=== PATIENT | male | born 1970 | race Two or more races ===

== ENCOUNTER 2020-06-09 09:16 | Outpatient (CLI) | payer OTHER | END 2020-06-09 09:22 | disposition HB | LOC: SONOGRAMA 09:16 | DX: R16.1 Splenomegaly, not elsewhere classified (principal); D69.49 Other primary thrombocytopenia; D70.4 Cyclic neutropenia ==

== ENCOUNTER 2020-08-13 10:12 | Outpatient (CLI) | payer OTHER | END 2020-08-13 10:28 | disposition home or self-care (01) | LOC: LAB 10:12 | DX: D69.49 Other primary thrombocytopenia (principal); D70.4 Cyclic neutropenia ==

== ENCOUNTER → 2021-02-13 08:58 | Outpatient (CLI) | payer OTHER | END | disposition home or self-care (01) | LOC: LAB 08:58 | PROVIDERS: ATTEND Physical Medicine & Rehabilitation | DX: R73.09 Other abnormal glucose (principal); E78.01 Familial hypercholesterolemia; E72.11 Homocystinuria; R53.1 Weakness; E55.9 Vitamin D deficiency, unspecified; R53.83 Other fatigue; E03.4 Atrophy of thyroid (acquired); Z12.5 Encounter for screening for malignant neoplasm of prostate; R70.0 Elevated erythrocyte sedimentation rate ==

== ENCOUNTER 2021-04-17 11:12 | Outpatient (CLI) | payer OTHER | END 2021-04-17 11:20 | disposition home or self-care (01) | LOC: LAB 11:12 | DX: D68.8 Other specified coagulation defects (principal); T45.515A Adverse effect of anticoagulants, initial encounter; Z01.812 Encounter for preprocedural laboratory examination; I10 Essential (primary) hypertension; H00.14 Chalazion left upper eyelid ==

== ENCOUNTER 2022-02-16 07:56 | Outpatient (CLI) | payer OTHER | END 2022-02-16 08:07 | disposition home or self-care (01) | LOC: LAB 07:56 | PROVIDERS: ATTEND Physical Medicine & Rehabilitation | DX: E78.01 Familial hypercholesterolemia (principal); R73.09 Other abnormal glucose; E72.11 Homocystinuria; R53.83 Other fatigue; R53.1 Weakness; E29.1 Testicular hypofunction; E03.4 Atrophy of thyroid (acquired); Z12.5 Encounter for screening for malignant neoplasm of prostate ==

== ENCOUNTER 2022-08-20 10:39 | Outpatient (CLI) | payer OTHER | END 2022-08-20 10:54 | disposition home or self-care (01) | LOC: LAB 10:39 | PROVIDERS: ATTEND Physical Medicine & Rehabilitation | DX: R53.83 Other fatigue (principal); R53.1 Weakness; E55.9 Vitamin D deficiency, unspecified; E29.1 Testicular hypofunction; E03.4 Atrophy of thyroid (acquired); Z12.5 Encounter for screening for malignant neoplasm of prostate; R70.0 Elevated erythrocyte sedimentation rate ==

== ENCOUNTER 2023-02-18 10:33 | Outpatient (CLI) | payer OTHER ==
[2023-02-18 11:21] LABS: URINE APPEARANCE Clear; URINE BILIRRUBIN Negative (NEGATIVE); URINE BLOOD Negative; URINE COLOR Yellow; URINE GLUCOSE Negative (NEGATIVE); URINE LEUKOCYTE Negative; URINE NITRATE Negative; URINE PROTEIN Negative (NEGATIVE); URINE UROBILINOGEN 0.2 E.U./dl
[2023-02-18 11:28] LABS: URINE BACTERIA 1.2 uL (0.0-1933); URINE EPITHELIAL CELLS 0.1 uL (0.0-38.8); URINE WBC 0.6 uL (0.0-23.2)
[2023-02-18 11:33] LABS: HEMATOCRIT 41.3 % (39.0-48.0); HEMOGLOBIN 14.5 g/dL (13-16.00); MEAN CELL VOLUME 90.4 fL (80.0-100.00); MEAN CORPUSCULAR HEMOGLOBIN 31.8 pg (27.00-32.0); MEAN CORPUSCULAR HGB CONC 35.2 g/dl (32.0-36.0); PLATELET COUNT 112 K/uL (150-450); RED BLOOD COUNT 4.57 M/uL (4.00-6.00); RED CELL DISTRIBUTION WIDTH 13.6 % (11.5-14.5)
[2023-02-18 11:50] LABS: ALBUMIN 3.7 gm/dL (3.4-5.0); ALKALINE PHOSPHATASE 61 U/L (50-136); ALT/SGPT 33 U/L (12-78); ANION GAP 4 (10.0-20.0); AST/SGOT 15 U/L (15-37); BILIRUBIN TOTAL 0.64 mg/dL (0.3-1.2); BLOOD UREA NITROGEN 27 mg/dL (7-18); BUN CREA RATIO 23 (7.0-25.0); CALCIUM 8.7 mg/dL (8.5-10.1); CARBON DIOXIDE 33 mEq/L (21-32); CHLORIDE 105 mmol/L (98-107); CHOLESTEROL 187 mg/dL (0-200); CREATININE SERUM 1.16 mg/dL (0.70-1.30); FREE TRIODOTIRONINE 2.61 pg/ml (2.18-3.98); GFR 65.86; GLOBULINA 2.8 G/DL (2.4-3.5); GLUCOSE FASTING 94 mg/dL (65-100); HDL 63 mg/dl (40-60); LDL 116 mg/dl (0-130); OSMOLALITY SERUM 281 MOSM/KG (275-295); POTASSIUM 4.22 mEq/L (3.5-5.1); SODIUM 138 mmol/L (136-145); T4 FREE 0.91 NG/ML (0.76-1.46); TOTAL PROTEIN 6.5 gm/dL (6.4-8.2); TRIGLYCERIDES 38 mg/dL (0-150); VLDL 7 (0-39)
[2023-02-18 11:58] LABS: C-REACTIVE PROTEIN < 0.29 MG/DL (0.00-0.29)
== END 2023-02-18 10:35 | disposition home or self-care (01) ==
LOC: LAB 10:33
PROVIDERS: ATTEND Physical Medicine & Rehabilitation
DX: N40.1 Benign prostatic hyperplasia with lower urinary tract symptoms (principal); R73.09 Other abnormal glucose; R53.83 Other fatigue; R53.1 Weakness; E55.9 Vitamin D deficiency, unspecified; E29.1 Testicular hypofunction; E03.4 Atrophy of thyroid (acquired); Z12.5 Encounter for screening for malignant neoplasm of prostate; R70.0 Elevated erythrocyte sedimentation rate

== ENCOUNTER 2023-02-22 08:23 | Outpatient (CLI) | payer OTHER | END 2023-02-22 08:36 | disposition home or self-care (01) | LOC: SONOGRAMA 08:23 | PROVIDERS: ATTEND Physical Medicine & Rehabilitation | DX: E03.4 Atrophy of thyroid (acquired) (principal) ==

== ENCOUNTER 2023-08-19 09:35 | Outpatient (CLI) | payer OTHER ==
[2023-08-19 12:36] LABS: HEMATOCRIT 43.7 % (39.0-48.0); MEAN CELL VOLUME 90.7 fL (80.0-100.00); MEAN CORPUSCULAR HEMOGLOBIN 31.2 pg (27.00-32.0); MEAN CORPUSCULAR HGB CONC 34.4 g/dl (32.0-36.0); RED BLOOD COUNT 4.81 M/uL (4.00-6.00)
[2023-08-19 12:39] LABS: ERYTHROCYTE SEDIMENTATION RATE < 1 mm/hr; PLATELET COUNT 114 K/uL (150-450)
[2023-08-19 13:30] LABS: ALKALINE PHOSPHATASE 58 U/L (50-136); ALT/SGPT 33 U/L (12-78); ANION GAP 7 (10.0-20.0); AST/SGOT 18 U/L (15-37); BILIRUBIN TOTAL 0.54 mg/dL (0.3-1.2); BLOOD UREA NITROGEN 25 mg/dL (7-18); BUN CREA RATIO 20 (7.0-25.0); CALCIUM 9.3 mg/dL (8.5-10.1); CARBON DIOXIDE 32 mEq/L (21-32); CHLORIDE 108 mmol/L (98-107); CHOL HDL RATIO 3.6 (0-5.0); CHOLESTEROL 196 mg/dL (0-200); CREATININE SERUM 1.24 mg/dL (0.70-1.30); FREE TRIODOTIRONINE 3.18 pg/ml (2.18-3.98); GFR 60.75; GLUCOSE FASTING 86 mg/dL (65-100); HDL 54 mg/dl (40-60); LDL 131 mg/dl (0-130); OSMOLALITY SERUM 287 MOSM/KG (275-295); POTASSIUM 4.86 mEq/L (3.5-5.1); PROSTATIC SPECIFIC ANTIGEN 0.502 NG/ML (0.010-4.00); SODIUM 142 mmol/L (136-145); TRIGLYCERIDES 53 mg/dL (0-150); VLDL 10 (0-39)
[2023-08-19 13:34] LABS: C-REACTIVE PROTEIN < 0.29 MG/DL (0.00-0.29)
== END 2023-08-19 09:52 | disposition home or self-care (01) ==
LOC: LAB 09:35
PROVIDERS: ATTEND Physical Medicine & Rehabilitation
DX: R53.83 Other fatigue (principal); R53.1 Weakness; E55.9 Vitamin D deficiency, unspecified; E29.1 Testicular hypofunction; E03.4 Atrophy of thyroid (acquired); Z12.5 Encounter for screening for malignant neoplasm of prostate; R70.0 Elevated erythrocyte sedimentation rate

== ENCOUNTER 2024-02-24 10:20 | Outpatient (CLI) | payer OTHER ==
[2024-02-24 12:14] LABS: PH,URINE 7.5 (5.0-8.0); URINE APPEARANCE Clear; URINE BILIRRUBIN Negative (NEGATIVE); URINE BLOOD Negative; URINE COLOR Yellow; URINE GLUCOSE Negative (NEGATIVE); URINE KETONE Negative (NEGATIVE); URINE LEUKOCYTE Negative; URINE NITRATE Negative; URINE PROTEIN Negative (NEGATIVE); URINE UROBILINOGEN 0.2 E.U./dl
[2024-02-24 12:20] LABS: HEMATOCRIT 44.3 % (39.0-48.0); HEMOGLOBIN 15.6 g/dL (13-16.00); MEAN CELL VOLUME 90.7 fL (80.0-100.00); MEAN CORPUSCULAR HGB CONC 35.3 g/dl (32.0-36.0); RED BLOOD COUNT 4.88 M/uL (4.00-6.00); RED CELL DISTRIBUTION WIDTH 13.6 % (11.5-14.5)
[2024-02-24 12:21] LABS: PLATELET COUNT 119 K/uL (150-450)
[2024-02-24 12:23] LABS: URINE BACTERIA 1.2 uL (0.0-1933); URINE RBC 1.9 uL (0.0-20.8); URINE WBC 0.3 uL (0.0-23.2)
[2024-02-24 12:24] LABS: ob POSITIVE (NEGATIVE)
[2024-02-24 12:41] LABS: ERYTHROCYTE SEDIMENTATION RATE 1 mm/hr
[2024-02-24 13:05] LABS: ALBUMIN 4.1 gm/dL (3.4-5.0); BILIRUBIN TOTAL 1.04 mg/dL (0.3-1.2); CALCIUM 9.2 mg/dL (8.5-10.1); CHOL HDL RATIO 2.7 (0-5.0); CREATININE SERUM 1.11 mg/dL (0.70-1.30); FREE TRIODOTIRONINE 2.75 pg/ml (2.18-3.98); GFR 69.03; GLOBULINA 3.1 G/DL (2.4-3.5); POTASSIUM 4.54 mEq/L (3.5-5.1); PROSTATIC SPECIFIC ANTIGEN 0.555 NG/ML (0.010-4.00); T4 FREE 0.92 NG/ML (0.76-1.46); T4 TOTAL 8.78 UG/DL (4.5-12.1); TOTAL PROTEIN 7.2 gm/dL (6.4-8.2); TSH 2.66 uIU/mL (0.358-3.74)
[2024-02-26 11:17] LABS: T3 TOTAL 1.09 ng/ml (0.846-2.02); VITAMIN D3 25 HYDROXY 64.23 ng/ml (30-120)
== END 2024-02-24 10:21 | disposition home or self-care (01) ==
LOC: LAB 10:20
PROVIDERS: ATTEND Physical Medicine & Rehabilitation
DX: E78.2 Mixed hyperlipidemia (principal); I10 Essential (primary) hypertension; Z00.00 Encounter for general adult medical examination without abnormal findings; E03.9 Hypothyroidism, unspecified; E55.9 Vitamin D deficiency, unspecified; E78.1 Pure hyperglyceridemia; D64.9 Anemia, unspecified; R73.02 Impaired glucose tolerance (oral); R31.9 Hematuria, unspecified; R97.20 Elevated prostate specific antigen [PSA]; Z12.11 Encounter for screening for malignant neoplasm of colon; R53.83 Other fatigue; R53.1 Weakness; E29.1 Testicular hypofunction; E03.4 Atrophy of thyroid (acquired); Z12.5 Encounter for screening for malignant neoplasm of prostate; R70.0 Elevated erythrocyte sedimentation rate

== ENCOUNTER → 2024-09-05 07:47 | Outpatient (CLI) | payer OTHER ==
[2024-09-05 08:36] LABS: URINE APPEARANCE Clear; URINE BILIRRUBIN Negative (NEGATIVE); URINE BLOOD Negative; URINE COLOR Yellow; URINE GLUCOSE Negative (NEGATIVE); URINE KETONE Negative (NEGATIVE); URINE LEUKOCYTE Negative; URINE NITRATE Negative; URINE PROTEIN Negative (NEGATIVE); URINE UROBILINOGEN 0.2 E.U./dl
[2024-09-05 08:42] LABS: HEMATOCRIT 42.9 % (39.0-48.0); HEMOGLOBIN 15.1 g/dL (13-16.00); MEAN CELL VOLUME 88.7 fL (80.0-100.00); MEAN CORPUSCULAR HEMOGLOBIN 31.3 pg (27.00-32.0); MEAN CORPUSCULAR HGB CONC 35.3 g/dl (32.0-36.0); RED BLOOD COUNT 4.83 M/uL (4.00-6.00); RED CELL DISTRIBUTION WIDTH 13.4 % (11.5-14.5)
[2024-09-05 08:46] LABS: ERYTHROCYTE SEDIMENTATION RATE 1 mm/hr
[2024-09-05 08:47] LABS: PLATELET COUNT 113 K/uL (150-450)
[2024-09-05 09:33] LABS: URINE BACTERIA 1.2 uL (0.0-1933); URINE EPITHELIAL CELLS 0.4 uL (0.0-38.8); URINE RBC 1.7 uL (0.0-20.8); URINE WBC 0.9 uL (0.0-23.2)
[2024-09-05 09:46] LABS: C-REACTIVE PROTEIN < 0.29 MG/DL (0.00-0.29)
[2024-09-05 10:05] LABS: ALKALINE PHOSPHATASE 57 U/L (50-136); ALT/SGPT 41 U/L (12-78); ANION GAP 5 (10.0-20.0); AST/SGOT 24 U/L (15-37); BILIRUBIN TOTAL 0.95 mg/dL (0.3-1.2); BLOOD UREA NITROGEN 25 mg/dL (7-18); BUN CREA RATIO 22 (7.0-25.0); CALCIUM 9.2 mg/dL (8.5-10.1); CARBON DIOXIDE 33 mEq/L (21-32); CHLORIDE 107 mmol/L (98-107); CHOLESTEROL 182 mg/dL (0-200); CREATININE SERUM 1.13 mg/dL (0.70-1.30); FREE TRIODOTIRONINE 2.66 pg/ml (2.18-3.98); GFR 67.37; GLOBULINA 3.1 G/DL (2.4-3.5); GLUCOSE FASTING 89 mg/dL (65-100); HDL 60 mg/dl (40-60); LDL 111 mg/dl (0-130); OSMOLALITY SERUM 285 MOSM/KG (275-295); POTASSIUM 4.39 mEq/L (3.5-5.1); SODIUM 141 mmol/L (136-145); T4 FREE 0.98 NG/ML (0.76-1.46); T4 TOTAL 9.04 UG/DL (4.5-12.1); TOTAL PROTEIN 7.1 gm/dL (6.4-8.2); TRIGLYCERIDES 57 mg/dL (0-150); VLDL 11 (0-39)
[2024-09-05 12:35] LABS: T3 TOTAL 1.23 ng/ml (0.846-2.02); VITAMIN D3 25 HYDROXY 89.27 ng/ml (30-120)
[2024-09-06 09:07] LABS: ESTRADIOL SERUM 34.9 pg/mL (7.6-42.6); LEUTEINIZING HORMONE < 0.3 mIU/mL (1.7-8.6); PROLACTIN 5.6 ng/mL (3.6-25.2)
== END | disposition home or self-care (01) ==
LOC: LAB 07:47
PROVIDERS: ATTEND Physical Medicine & Rehabilitation
DX: E29.1 Testicular hypofunction (principal); N40.1 Benign prostatic hyperplasia with lower urinary tract symptoms; Z13.220 Encounter for screening for lipoid disorders; R73.09 Other abnormal glucose; E08.9 Diabetes mellitus due to underlying condition without complications; E78.5 Hyperlipidemia, unspecified; E72.11 Homocystinuria; E03.9 Hypothyroidism, unspecified; Z12.11 Encounter for screening for malignant neoplasm of colon; Z00.00 Encounter for general adult medical examination without abnormal findings; E78.2 Mixed hyperlipidemia; I10 Essential (primary) hypertension; E55.9 Vitamin D deficiency, unspecified; E66.3 Overweight; E78.1 Pure hyperglyceridemia; D64.9 Anemia, unspecified; R97.20 Elevated prostate specific antigen [PSA]; R31.9 Hematuria, unspecified; R73.02 Impaired glucose tolerance (oral)

== ENCOUNTER → 2024-09-07 01:00 | Outpatient (CLI) | payer OTHER ==
[2024-09-10 12:00] LABS: ob NEGATIVE (NEGATIVE)
== END | disposition home or self-care (01) ==
LOC: LAB 01:00
DX: E03.9 Hypothyroidism, unspecified (principal); Z12.11 Encounter for screening for malignant neoplasm of colon; Z00.00 Encounter for general adult medical examination without abnormal findings; E78.2 Mixed hyperlipidemia; I10 Essential (primary) hypertension; E55.9 Vitamin D deficiency, unspecified; E66.3 Overweight; E78.1 Pure hyperglyceridemia; D64.9 Anemia, unspecified; R73.02 Impaired glucose tolerance (oral); R31.9 Hematuria, unspecified; R97.20 Elevated prostate specific antigen [PSA]